=== PATIENT | male | born 1990 | race Two or more races ===

== ENCOUNTER 2016-12-17 21:30 | Emergency (ER) | payer OTHER ==
[2016-12-17] MEDS ORDERED: Amoxicillin/Clavulanate TAB* 875 MG PO ONE (22:31)
[2016-12-17] MEDS ORDERED: oxyCODONE/Acetamin 5/325 MG* TAB PO ONE (22:31)
--- NOTE | 2016-12-17 22:38 | ED ---
Throat Pain/Nasal Congestion - HPI Summary HPI Summary: 26M presents with right sided jaw pain for 4 days. He says he has had this pain in the past when he had an infection in the area. He initially broke his jaw two years and has a plate placed in his lower right jaw. He denies any fever , difficulty swallowing, chest pain, or SOB. He also admits to dental pain. He is seeing the surgeon a week. He has been taking ibuprofen for pain without relief. - History of Current Complaint Chief Complaint: EDGeneral Time Seen by Provider: 12/17/16 21:59 - Allergies/Home Medications Allergies/Adverse Reactions: Allergies Allergy/AdvReac Type Severity Reaction Status Date / Time No Known Allergies Allergy Verified 07/10/15 15:36 PMH/Surg Hx/FS Hx/Imm Hx Endocrine/Hematology History: Denies: Hx Diabetes, Hx Thyroid Disease Cardiovascular History: Denies: Hx Hypertension Respiratory History: Denies: Hx Asthma, Hx Chronic Obstructive Pulmonary Disease (COPD) GI History: Denies: Hx Ulcer Infectious Disease History: Denies: Hx Clostridium Difficile, Hx Hepatitis, Hx Human Immunodeficiency Virus (HIV), Hx of Known/Suspected MRSA, Hx Shingles, Hx Tuberculosis, Hx Known/ Suspected VRE, Hx Known/Suspected VRSA, History Other Infectious Disease, Traveled Outside the [place] in Last 30 Days - Family History Known Family History: Negative: Hypertension - Social History Alcohol Use: Rare Substance Use Type: Reports: None Smoking Status (MU): Heavy Every Day Tobacco Smoker Review of Systems Negative: Fever Positive: Dental Pain, Other - jaw pain Negative: Chest Pain Negative: Shortness Of Breath All Other Systems Reviewed And Are Negative: Yes Physical Exam Triage Information Reviewed: Yes Vital Signs On Initial Exam: Initial Vitals Temp Pulse Resp BP Pulse Ox 98.6 F 68 20 147/87 100 12/17/16 21:37 12/17/16 21:37 12/17/16 21:37 12/17/16 21:37 12/17/16 21:37 Vital Signs Reviewed: Yes Appearance: Positive: Well-Appearing Skin: Positive: Warm, Dry Head/Face: Positive: Normal Head/Face Inspection Eyes: Positive: Normal, EOMI, TEJAL, Conjunctiva Clear ENT: Positive: Normal ENT inspection, Pharynx normal, TMs normal Dental: Positive: Other - tender along plate felt in back of right lower teeth near widsom tooth, no abscess felt, no facial swelling Neck: Positive: Supple, Nontender, No Lymphadenopathy Respiratory/Lung Sounds: Positive: Clear to Auscultation, Breath Sounds Present Cardiovascular: Positive: Normal, RRR - Esdras Coma Scale Coma Scale Total: 15 Diagnostics - Vital Signs Vital Signs Temp Pulse Resp BP Pulse Ox 12/17/16 22:04 98.6 F 65 20 145/84 100 12/17/16 21:37 98.6 F 68 20 147/87 100 - Laboratory Lab Statement: Any lab studies that have been ordered have been reviewed, and results considered in the medical decision making process. EENT Course/Dx - Course Course Of Treatment: 26M presents with jaw pain for 4 days. has plate in area and says pain like this when was infected in past. follow up with surgeon in a week. denies any fever, difficulty swallowing. no edema noted on exam or abscess felt. like treat with augmentin and pain medication. patient understands and agrees with plan - Differential Diagnoses Differential Diagnoses: Dental Abscess, Dental Caries, Fractured Tooth - Diagnoses Provider Diagnoses: Jaw pain Discharge - Discharge Plan Condition: Good Disposition: HOME Prescriptions: Amoxicillin/Clavulanate TAB* [Augmentin TAB 875*] 875 mg PO BID #19 tab oxyCODONE/Acetamin 5/325 MG* [Percocet 5/325 TAB*] 1 tab PO Q6H PRN #12 tab MDD 4 PRN Reason: Pain Referrals: [facility] [place] [facility] REFERRAL [Outside] Additional Instructions: Take augmentin twice a day for 10 days, first dose given in ED Use ibuprofen every 6 hours and narcotic for break through pain at night Avoid hard, crunchy food until seen by surgery Follow up with surgery as scheduled Return to ED if develop fever, shortness of breath, chest pain, swelling, or any new or worsening symptoms Establish care with primary care physician
[2016-12-17 23:04] VITALS: BP 136/82
== END 2016-12-17 23:03 | disposition home or self-care (01) ==
LOC: ED 21:30
DX: R68.84 Jaw pain (principal); K08.89 Other specified disorders of teeth and supporting structures; F17.210 Nicotine dependence, cigarettes, uncomplicated
CPT/HCPCS: 99282; A9270-GY

== ENCOUNTER 2017-02-06 01:48 | Emergency (ER) | payer SELFPAY ==
[2017-02-06 02:17] LABS: Hematocrit 47 % (42-52); Mean Corpuscular HGB Conc 34 g/dl (31-36); Mean Corpuscular Hemoglobin 28 pg (27-31); Mean Corpuscular Volume 84 fL (80-94); Mean Platelet Volume 8 um3 (7.4-10.4); Red Blood Count 5.63 10^6/ul (4.0-5.4); Red Cell Distribution Width 12 % (10.5-15); White Blood Count 11.6 10^3/ul (3.5-10.8)
[2017-02-06 02:19] LABS: Add Diff/Slide Review? Slide Review Added; Comments Flag Yes
[2017-02-06 02:51] LABS: ALT 20 U/L (7-52); AST 14 U/L (13-39); Albumin 4.6 g/dL (3.2-5.2); Alkaline Phosphatase 52 U/L (34-104); Anion Gap 4 mmol/L (2-11); BUN/Creatinine Ratio 11.1 (8-20); Blood Urea Nitrogen 11 mg/dL (6-24); CO2 Carbon Dioxide 33 mmol/L (22-32); Calcium 9.4 mg/dL (8.6-10.3); Chloride 98 mmol/L (101-111); EGFR African American 119.4 (>60); EGFR Non-African American 92.9 (>60); Globulin 2.6 g/dL (2-4); Glucose 138 mg/dL (70-100); Potassium 3.9 mmol/L (3.5-5.0); Sodium 135 mmol/L (133-145); Total Protein 7.2 g/dL (6.4-8.9)
[2017-02-06 02:53] LABS: Alcohol < 10 mg/dL (<10)
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
[2017-02-06 06:12] VITALS: BP 116/68
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
== END 2017-02-06 06:12 | disposition home or self-care (01) ==
LOC: ED 01:48
DX: S06.0X9A Concussion with loss of consciousness of unspecified duration, initial encounter (principal); T14.8 Other injury of unspecified body region; R51 Headache; F17.210 Nicotine dependence, cigarettes, uncomplicated; V87.8XXA Person injured in other specified noncollision transport accidents involving motor vehicle (traffic), initial encounter; Y93.89 Activity, other specified; Y92.89 Other specified places as the place of occurrence of the external cause
CPT/HCPCS: 36415; 70450; 72125; 80053; 80320; 83605; 85025; 99284; G0480

== ENCOUNTER 2017-08-23 03:44 | Emergency (ER) | payer SELFPAY ==
[2017-08-23] MEDS ORDERED: Ketorolac INJ* 60 MG/2 ML VIAL IM ONE (05:07)
[2017-08-23] MEDS ORDERED: oxyCODONE/Acetamin 5/325 MG* TAB PO ONE (05:07)
[2017-08-23 05:48] VITALS: BP 119/77
--- NOTE | 2017-08-23 05:48 | ED ---
Brian Camacho Tecjoon, scribed for Gabriel Nelson MD on 08/23/17 at 0516 . Throat Pain/Nasal Congestion - HPI Summary HPI Summary: This patient is a 26 year old male presenting to [facility] with a chief complaint of jaw pain since couple days ago. Patient states that it is hard to swallow because his jaw is so swollen. The pain is rated 6/10 in severity. Symptoms aggravated by nothing. Symptoms alleviated by nothing. - History of Current Complaint Chief Complaint: EDFacialInjury Time Seen by Provider: 08/23/17 04:49 Hx Obtained From: Patient Onset/Duration: Lasting Days, Still Present Severity: Moderate - Allergies/Home Medications Allergies/Adverse Reactions: Allergies Allergy/AdvReac Type Severity Reaction Status Date / Time No Known Allergies Allergy Verified 02/06/17 01:56 PMH/Surg Hx/FS Hx/Imm Hx Previously Healthy: Yes Endocrine/Hematology History: Denies: Hx Diabetes, Hx Thyroid Disease Cardiovascular History: Denies: Hx Hypertension Respiratory History: Denies: Hx Asthma, Hx Chronic Obstructive Pulmonary Disease (COPD) GI History: Denies: Hx Ulcer Opthamlomology History: 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 EENT History: Denies: Hx Deafness Infectious Disease History: No Infectious Disease History: Denies: Hx Clostridium Difficile, Hx Hepatitis, Hx Human Immunodeficiency Virus (HIV), Hx of Known/Suspected MRSA, Hx Shingles, Hx Tuberculosis, Hx Known/ Suspected VRE, Hx Known/Suspected VRSA, History Other Infectious Disease, Traveled Outside the [place] in Last 30 Days - Family History Known Family History: Negative: Hypertension - Social History Lives: Alone Alcohol Use: Rare Substance Use Type: Reports: Marijuana Smoking Status (MU): Heavy Every Day Tobacco Smoker Review of Systems Negative: Fever Positive: Other - jaw pain All Other Systems Reviewed And Are Negative: Yes Physical Exam - Summary Physical Exam Summary: VITAL SIGNS: Reviewed. GENERAL: Patient is a well-developed and nourished (MALE OR FEMALE) who is lying comfortable in the stretcher. Patient is not in any acute respiratory distress. HEAD AND FACE: No signs of trauma. No ecchymosis, hematomas or skull depressions. No sinus tenderness. EYES: PERRLA, EOMI x 2, No injected conjunctiva, no nystagmus. EARS: Hearing grossly intact. Ear canals and tympanic membranes are within normal limits. MOUTH: Oropharynx within normal limits. NECK: Supple, trachea is midline, no adenopathy, no JVD, no carotid bruit, no c- spine tenderness, neck with full ROM. CHEST: Symmetric, no tenderness at palpation LUNGS: Clear to auscultation bilaterally. No wheezing or crackles. CVS: Regular rate and rhythm, S1 and S2 present, no murmurs or gallops appreciated. ABDOMEN: Soft, non-tender. No signs of distention. No rebound no guarding, and no masses palpated. Bowel sounds are normal. EXTREMITIES: FROM in all major joints, no edema, no cyanosis or clubbing. NEURO: Alert and oriented x 3. No acute neurological deficits. Speech is normal and follows commands. SKIN: Dry and warm Triage Information Reviewed: Yes Vital Signs On Initial Exam: Initial Vitals Temp Pulse Resp BP Pulse Ox 98.9 F 84 16 127/70 99 08/23/17 03:48 08/23/17 03:48 08/23/17 03:48 08/23/17 03:48 08/23/17 03:48 Vital Signs Reviewed: Yes Diagnostics - Vital Signs Vital Signs Temp Pulse Resp BP Pulse Ox 08/23/17 03:48 98.9 F 84 16 127/70 99 - Laboratory Lab Statement: Any lab studies that have been ordered have been reviewed, and results considered in the medical decision making process. EENT Course/Dx - Course Course Of Treatment: This patient is a 26 year old male presenting to [facility] with a chief complaint of jaw pain since couple days ago. Patient states that it is hard to swallow because his jaw is so swollen. In the ED course the patient was given Toradol, oxycodone. Patient will be discharged with jaw pain and prescription for motrin and follow up with PCP in 3 days. The patient is agreeable with this plan. - Diagnoses Provider Diagnoses: Jaw pain Discharge - Discharge Plan Condition: Stable Disposition: HOME Prescriptions: Ibuprofen TAB* [Motrin TAB* 800 MG] 800 mg PO Q6H PRN #30 tab PRN Reason: Pain Patient Education Materials: Atypical Facial Pain (ED) Referrals: No Primary Care Phys,NOPCP [Primary Care Provider] - [facility] REFERRAL [Outside] - 3 Days Additional Instructions: Patient will be discharged with jaw pain and prescription for motrin and follow up with PCP in 3 days. The patient is agreeable with this plan. Return to ED for any new or worsening symptoms. The documentation as recorded by the Brian greene Tecjoon accurately reflects the service I personally performed and the decisions made by , Gabriel Nelson MD.
== END 2017-08-23 05:49 | disposition home or self-care (01) ==
LOC: ED 03:44
DX: R68.84 Jaw pain (principal)
CPT/HCPCS: 96372; 99282; A9270-GY; J1885

== ENCOUNTER 2017-11-29 03:56 | Emergency (ER) | payer SELFPAY ==
[2017-11-29] MEDS ORDERED: Clindamycin 600 MG IVPREMIX(* 600 MG/50 ML SDV IV ONE (04:38)
[2017-11-29] MEDS ORDERED: Ketorolac INJ* 30 MG/ML 1 ML VIAL IV PUSH ONE (04:41)
[2017-11-29 05:00] LABS: ABS Basophils 0.1 10^3/ul (0-0.2); ABS Eosinophils 0.2 10^3/ul (0-0.6); ABS Lymphocytes 2.5 10^3/ul (1.0-4.8); ABS Monocytes 1.3 10^3/ul (0-0.8); ABS Neutrophils 10.2 10^3/ul (1.5-7.7); ABS Nucleated RBC 0 10^3/ul; Eosinophil % 1.2 % (0-6); Hematocrit 43 % (42-52); Hemoglobin 14.7 g/dl (14.0-18.0); Lymphocyte % 17.3 % (25-47); Mean Corpuscular HGB Conc 35 g/dl (31-36); Mean Corpuscular Hemoglobin 28 pg (27-31); Mean Corpuscular Volume 81 fL (80-94); Nucleated Red Blood Cells % 0.1; Platelet Count 344 10^3/ul (150-450); Red Blood Count 5.29 10^6/ul (4.0-5.4); Red Cell Distribution Width 14 % (10.5-15); White Blood Count 14.2 10^3/ul (3.5-10.8)
[2017-11-29 05:44] VITALS: BP 121/67
[2017-11-29 06:08] LABS: EGFR Non-African American 112.9 (>60)
--- NOTE | 2017-12-03 01:11 | ED ---
Emerita Camacho Julia, scribed for Joshua Bernard MD on 11/29/17 at 0441 . Neck Pain - HPI Summary HPI Summary: This patient is a 27 year old M presenting to [facility] with a chief complaint of a swelling in the R mandibular area noticed three days ago, that has worsened with spreading of swelling to the submandibular space and pain. The patient rates the pain 10/10 in severity. Patient denies dental pain, but reports swollen gums. He has a h/o a plate in R mandible placed after breaking jaw. There has been no fever. He endorses trismus, difficult to swallow or open his jaw. - History of Current Complaint Chief Complaint: EDRashSkinAbscess Stated Complaint: ABSCESS Time Seen by Provider: 11/29/17 04:29 Hx Obtained From: Patient Onset/Duration Of Injury/Symptoms: Days Mechanism Of Injury: No Known Trauma Timing: Lasting Days Onset/Duration: Gradual Onset Pain Intensity: 10 Pain Scale Used: 0-10 Numeric Location: Discrete At: - R parotid Aggravating Factors: Nothing Alleviating Factors: Nothing Associated Signs & Symptoms: Positive: Swelling - Allergies/Home Medications Allergies/Adverse Reactions: Allergies Allergy/AdvReac Type Severity Reaction Status Date / Time No Known Allergies Allergy Verified 11/29/17 04:00 Home Medications: Home Medications NK [No Home Medications Reported] 11/29/17 [History Confirmed 11/29/17] PMH/Surg Hx/FS Hx/Imm Hx Endocrine/Hematology History: Denies: Hx Diabetes, Hx Thyroid Disease Cardiovascular History: Denies: Hx Hypertension Respiratory History: Denies: Hx Asthma, Hx Chronic Obstructive Pulmonary Disease (COPD) GI History: Denies: Hx Ulcer Sensory History: 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 Denies: Hx Deafness Opthamlomology History: 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 Infectious Disease History: No Infectious Disease History: Denies: Hx Clostridium Difficile, Hx Hepatitis, Hx Human Immunodeficiency Virus (HIV), Hx of Known/Suspected MRSA, Hx Shingles, Hx Tuberculosis, Hx Known/ Suspected VRE, Hx Known/Suspected VRSA, History Other Infectious Disease, Traveled Outside the [place] in Last 30 Days - Family History Known Family History: Negative: Hypertension - Social History Alcohol Use: Rare Substance Use Type: Reports: Heroin, Marijuana Smoking Status (MU): Heavy Every Day Tobacco Smoker Review of Systems Constitutional: Negative Positive: Other - R parotid pain and edema. Negative: Dental Pain All Other Systems Reviewed And Are Negative: Yes Physical Exam - Summary Physical Exam Summary: Appearance: non-toxic appearing, Well-nourished, lying in bed comfortably Skin: Warm, dry, no obvious rash Eyes: sclera anicteric, no conjunctiva pallor ENT: mucous membranes moist, pharynx appears normal Neck:woody edema and induration of right submandibular space with associated swelling over the right mandible, no spread to the left side, no dysphonia, there is some trismus , no fluctuate Respiratory: Clear to auscultation, no signs of respiratory distress Cardiovascular: Normal S1, S2. No murmurs. Normal distal pulses in tibial and radial bilaterally. Abdomen: Soft, nontender, normal active bowel sounds present Musculoskeletal: Normal, Strength/ROM Intact Neurological: A&Ox3, awake and alert, mentation is normal, speech is fluent and appropriate Psychiatric: affect is normal, does not appear anxious or depressed Triage Information Reviewed: Yes Vital Signs On Initial Exam: Initial Vitals Temp Pulse Resp BP Pulse Ox 99.2 F 110 16 134/90 96 11/29/17 03:58 11/29/17 03:58 11/29/17 03:58 11/29/17 03:58 11/29/17 03:58 Vital Signs Reviewed: Yes Diagnostics - Vital Signs Vital Signs Temp Pulse Resp BP Pulse Ox 11/29/17 04:31 101 97 11/29/17 04:30 101 136/90 98 11/29/17 03:58 99.2 F 110 16 134/90 96 - Laboratory Lab Results: Lab Results 11/29/17 Range/Units 04:47 WBC 14.2 H (3.5-10.8) 10^3/ul RBC 5.29 (4.0-5.4) 10^6/ul Hgb 14.7 (14.0-18.0) g/dl Hct 43 (42-52) % MCV 81 (80-94) fL MCH 28 (27-31) pg MCHC 35 (31-36) g/dl RDW 14 (10.5-15) % Plt Count 344 (150-450) 10^3/ul MPV 7.0 L (7.4-10.4) um3 Neut % (Auto) 72.0 (38-83) % Lymph % (Auto) 17.3 L (25-47) % [place] % (Auto) 8.8 H (0-7) % Eos % (Auto) 1.2 (0-6) % Baso % (Auto) 0.7 (0-2) % Absolute Neuts (auto) 10.2 H (1.5-7.7) 10^3/ul Absolute Lymphs (auto) 2.5 (1.0-4.8) 10^3/ul Absolute Monos (auto) 1.3 H (0-0.8) 10^3/ul Absolute Eos (auto) 0.2 (0-0.6) 10^3/ul Absolute Basos (auto) 0.1 (0-0.2) 10^3/ul Absolute Nucleated RBC 0 10^3/ul Nucleated RBC % 0.1 Result Diagrams: 11/29/17 04:47 Lab Statement: Any lab studies that have been ordered have been reviewed, and results considered in the medical decision making process. Neck Course/Dx - Course Assessment/Plan: 27 y/o IVDA with acute swelling of mandible and submandibular space. A diagnosis of Herman's angina was entertained but he only has unilateral swelling and no dysphonia. He was given an IV dose of clindamycin here and will be continued on that orally. Liquid diet for now until swelling improves. Will need f/u with dentist. - Diagnoses Differential Dx/HQI/PQRI: Positive: Other - Ludwigs angina Provider Diagnoses: Dental abscess Discharge - Sign-Out/Discharge Documenting (check all that apply): Discharge/Admit/Transfer - Discharge Plan Condition: Good Disposition: HOME Prescriptions: Clindamycin Cap(NF) [Clindamycin Cap 300 mg Cap(NF)] 300 mg PO TID #30 cap Naproxen [Naproxen 500 mg tab] 500 mg PO BID #20 tablet Patient Education Materials: Dental Abscess (ED) Referrals: No Primary Care Phys,NOPCP [Primary Care Provider] - Additional Instructions: You will need followup care with a dentist of your choice. The swelling and pain should start coming down over the next couple of days with the antibiotics. If not or if it is worsening, come back here to the ED. The documentation as recorded by the Emerita greene Julia accurately reflects the service I personally performed and the decisions made by me, Joshua Bernard MD.
== END 2017-11-29 05:44 | disposition home or self-care (01) ==
LOC: ED 03:56
DX: K04.7 Periapical abscess without sinus (principal); H54.8 Legal blindness, as defined in USA; F17.200 Nicotine dependence, unspecified, uncomplicated
CPT/HCPCS: 36415; 80048; 85025; 96365; 96375; 99283; J1885

== ENCOUNTER 2019-04-28 20:05 | Emergency (ER) | payer MEDICAID ==
--- NOTE | 2019-04-28 20:24 | ED ---
Upper Extremity Pain - HPI Summary HPI Summary: 28 year old M presenting to [facility] accompanied by female disease case manager complains of 1 protrusion on his right axillary and 1 protrusion on his left axillary since 3 days ago. Denies fever, nausea, drainage. States he has never had symptoms like this before. States he switched to using gel deodorant recently. States the one on his left has decreased in size since 3 days ago. The patient rates the pain 6/10 in severity. Symptoms aggravated by nothing. Symptoms alleviated by Tylenol 500 mg and heat. Denies pertinent PMHx. - History of Current Complaint Chief Complaint: EDExtremityUpper Stated Complaint: BOILS UNDER BOTH ARMS PER PT Time Seen by Provider: 04/28/19 20:09 Hx Obtained From: Patient Onset/Duration: Started Days Ago - 3, Still Present Timing: Constant, Lasting Days - 3 Severity Currently: Moderate - 6/10 Pain Location: Other: - bilateral axillary Aggravating Factor(s): Nothing Alleviating Factor(s): Nothing Associated Signs & Symptoms: Positive: Negative - fever, nausea, drainage - Allergies/Home Medications Allergies/Adverse Reactions: Allergies Allergy/AdvReac Type Severity Reaction Status Date / Time No Known Allergies Allergy Verified 04/28/19 20:11 PMH/Surg Hx/FS Hx/Imm Hx Endocrine/Hematology History: Denies: Hx Diabetes, Hx Thyroid Disease Cardiovascular History: Denies: Hx Hypertension Respiratory History: Denies: Hx Asthma, Hx Chronic Obstructive Pulmonary Disease (COPD) GI History: Denies: Hx Ulcer Sensory History: 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 Denies: Hx Deafness Opthamlomology History: 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 - Surgical History Surgery Procedure, Year, and Place: jaw Infectious Disease History: No Infectious Disease History: Denies: Hx Clostridium Difficile, Hx Hepatitis, Hx Human Immunodeficiency Virus (HIV), Hx of Known/Suspected MRSA, Hx Shingles, Hx Tuberculosis, Hx Known/ Suspected VRE, Hx Known/Suspected VRSA, History Other Infectious Disease, Traveled Outside the [place] in Last 30 Days - Family History Known Family History: Negative: Hypertension - Social History Alcohol Use: None Hx Substance Use: Yes Substance Use Type: Reports: Heroin, Marijuana Hx Tobacco Use: Yes Smoking Status (MU): Heavy Every Day Tobacco Smoker Review of Systems - ROS Summary Review of Systems Summary: Home Medications Medication Instructions Recorded Confirmed Type Amoxicillin/Clavulanate TAB* 875 mg PO BID #20 tab 04/28/19 Rx [Augmentin TAB 875*] Negative: Fever Negative: Nausea Skin: Negative - drainage Positive: Other - protusions on bilateral axillary All Other Systems Reviewed And Are Negative: Yes Physical Exam - Summary Physical Exam Summary: General: Thin MALE. No acute distress. HEENT: Normocephalic, Atraumatic. Eyes: Conjuctiva normal, PERRL. Ears: TMs within normal limits. Nares: (-) discharge, (-) erythema. Oropharynx: Clear, mucous membranes moist, (-) exudates. Neck: Soft, FROM, (-) lymphadenopathy, (-) thyromegaly, (-) JVD. Cardiovascular: Normal sinus rhythm, (-) murmur. Lungs: Clear to auscultation bilaterally (-) wheezes, (-) rales, (-) rhonchi. Abdomen: Soft, non-tender, non-distended, (-) organomegaly, normal bowel sounds. Back: (-) CVA tenderness Extremities: No edema. Skin: Warm, dry, (-) rash. He has a 3 mm erythematous protusion on right axilla which is warm and tender with no obvious fluctuance and no drainage and an 8 mm erythematous protusion on left axilla which is warm and tender with no obvious fluctuance and no drainage Neuro: Alert and oriented x3, no focal deficits. Psychiatric: Flat affect. Triage Information Reviewed: Yes Vital Signs On Initial Exam: Initial Vitals Temp Pulse Resp BP Pulse Ox 99 F 85 16 134/87 99 04/28/19 20:07 04/28/19 20:07 04/28/19 20:07 04/28/19 20:07 04/28/19 20:07 Vital Signs Reviewed: Yes Procedures - Sedation Patient Received Moderate/Deep Sedation with Procedure: No Diagnostics - Vital Signs Vital Signs Temp Pulse Resp BP Pulse Ox 04/28/19 20:07 99 F 85 16 134/87 99 - Laboratory Lab Statement: Any lab studies that have been ordered have been reviewed, and results considered in the medical decision making process. Course/Dx - Course Course Of Treatment: 28 year old M complains of 1 abscess on his right axillary and 1 abscess on his left axillary since 3 days ago after he switched to using gel deodorant. Upon exam, the patient is a thin male who has a 3 mm erythematous protusion on right axilla which is warm and tender with no obvious fluctuance and no drainage and an 8 mm erythematous protusion on left axilla which is warm and tender with no obvious fluctuance and no drainage. His affect is flat. In the ED course, the patient was given Augmentin 875 mg PO. Patient will be discharged home with prescription for Augmentin 875 mg PO BID and follow up from [facility] in 3 days. He was advised to take ibuprofen 3 times a day with food and to use heat (20 minutes on, 20 minutes off ). Patient was instructed to return to Emergency Department for new or worsening symptoms. Patient understands and is agreeable to this plan. - Diagnoses Provider Diagnoses: Axillary abscess Discharge ED - Sign-Out/Discharge Documenting (check all that apply): Patient Departure - Discharge - Discharge Plan Condition: Stable Disposition: HOME Prescriptions: Amoxicillin/Clavulanate TAB* [Augmentin TAB 875*] 875 mg PO BID #20 tab Patient Education Materials: Abscess (ED) Forms: *Work Release Referrals: [facility] [Outside] - 2 Days Additional Instructions: Take ibuprofen 3 times a day with food. Use heat (20 minutes on, 20 minutes off). Please follow up with [facility] within 3 days. Please return to Emergency Department for any new or worsening symptoms. - Billing Disposition and Condition Condition: STABLE Disposition: Home - Attestation Statements Document Initiated by Gama: Yes Documenting Scribe: Katherine Kennedy Provider For Whom Gama is Documenting (Include Credential): Bailee Gaxiola MD Scribe Attestation: I, Katherine Kennedy, scribed for Bailee Gaxiola MD on 04/28/19 at 2320. Scribe Documentation Reviewed: Yes Provider Attestation: The documentation as recorded by the Katherine greene accurately reflects the service I personally performed and the decisions made by me, Bailee Gaxiola MD Status of Scribmillie Document: Viewed
[2019-04-28] MEDS ORDERED: Amoxicillin/Clavulanate TAB* 875 MG PO ONE (20:40)
[2019-04-28 20:55] VITALS: BP 127/76
== END 2019-04-28 20:52 | disposition home or self-care (01) ==
LOC: ED 20:05
DX: L02.411 Cutaneous abscess of right axilla (principal); L02.412 Cutaneous abscess of left axilla; F17.200 Nicotine dependence, unspecified, uncomplicated
CPT/HCPCS: 99282; A9270-GY

== ENCOUNTER 2023-02-25 19:12 | Inpatient (IN) ==
[2023-02-25] MEDS ORDERED: Lactated Ringers 1000 ml BAG 1,000 ML IV ONE ×4 (19:41→20:37)
[2023-02-25 19:57] LABS: Hematocrit 52.7 % (38-53); Hemoglobin 16.8 g/dL (13.2-16.3); Mean Corpuscular Hemoglobin 27.8 pg (27-33); Mean Corpuscular Hgb Conc 31.9 g/dL (31-36); Mean Corpuscular Volume 87.1 fL (80-97); Mean Platelet Volume 8.5 fL (7.5-11.2); Platelet Count 282 10^3/uL (150-450); Red Blood Count 6.05 10^6/uL (4.06-5.63); Red Cell Distribution Width 13.8 % (12-17); White Blood Count 32.3 10^3/uL (3.6-10.2)
[2023-02-25 20:15] LABS: Albumin 4.7 g/dL (3.2-5.2); Calcium 7.2 mg/dL (8.6-10.3); Chloride 100 mmol/L (101-111); Sodium 135 mmol/L (135-145)
[2023-02-25] MEDS ORDERED: Iodixanol (CONTRAST) 320 MG/ML 100 ML SDV IV ONE (20:17)
[2023-02-25 20:21] LABS: Alkaline Phosphatase 77 U/L (35-149); Blood Urea Nitrogen 26 mg/dL (6-24); Creatinine, Serum 3.08 mg/dL (0.67-1.17); Glucose 106 mg/dL (70-100); eGFR CKD-EPI 26.9 (>60)
[2023-02-25 20:24] LABS: ABS Lymphocytes 1.7 10^3/uL (1.0-4.8); ABS Monocytes 1.1 10^3/uL (0.0-1.1); ABS Neutrophils 29.5 10^3/uL (1.5-7.6); ABS Nucleated RBC 0.13 10^3/ul; Eosinophil % 0.1 %; Lymphocyte % 5.2 %; Nucleated Red Blood Cells % 0.4 /100 WBC (0.0-0.4)
[2023-02-25 20:25] LABS: RBC Morphology Normal (Normal)
[2023-02-25 20:31] LABS: PCO2 Arterial 30 mmHg (35-45); PO2 Arterial 148 mmHg (80-100)
[2023-02-25 20:34] LABS: Anion Gap 23 mmol/L (2-16); CO2 Carbon Dioxide 12 mmol/L (22-32)
[2023-02-25 20:42] LABS: Alcohol, S < 13 mg/dL (<13)
[2023-02-25 20:58] LABS: INR 1.91 (0.83-1.13)
[2023-02-25] MEDS ORDERED: Calcium Gluconate 2 GM in NS 0.9% 100 ml BAG 100 ML IVPB ONE ×2 (21:25→22:51)
[2023-02-25] MEDS ORDERED: Dextrose 50% Syringe 50 ml 25 GM/50 ML SYRINGE IV PUSH ONE ×2 (21:25)
[2023-02-25] MEDS ORDERED: Albuterol 2.5mg/3 ml (0.083%) NEB.SOLN INH ONE (21:29)
[2023-02-25] MEDS ORDERED: SODIUM ZIRCONIUM CYCLOSILICATE 10 GM PACKET PO ONE (21:33)
[2023-02-25] MEDS: Norepinephrine 16MCG/ML BAGD5W 4,000 MCG/250 ML BAG IV SCH (21:44)
[2023-02-25] MEDS ORDERED: NS 0.9% 1000 ml BAG 100 ML IV PRN (22:07)
[2023-02-25] MEDS ORDERED: NS 0.9% 1000 ml BAG 200 ML IV PRN (22:07)
[2023-02-25] MEDS ORDERED: Succinylcholine 200 mg VIAL 20 mg/ml 10 ml VIAL (200 mg) ONE (22:12)
[2023-02-25] MEDS ORDERED: Rocuronium 50 mg VIAL 10 mg/ml 5 ml VIAL (50 mg) ONE (22:12)
[2023-02-25 22:25] LABS: High Sensitivity Troponin 1 Hr 2763 pg/mL (<20)
[2023-02-25] MEDS ORDERED: Propofol 10 mg/ml 100 ML BTL 1,000 MG/100 ML BTL ONE (22:28)
[2023-02-25] MEDS ORDERED: Rocuronium 50 mg VIAL 10 mg/ml 5 ml VIAL (50 mg) IV ONE (22:30)
[2023-02-25] MEDS ORDERED: Etomidate 20 mg/10 ml 2 MG/ML 10 ml VIAL IV ONE (22:30)
[2023-02-25 22:45] LABS: Acetaminophen < 15 mcg/mL; Salicylate < 2.50 mg/dL (<30)
[2023-02-25] MEDS ORDERED: Sodium Bicarbonate 8.4% SYR 50 ml SYRINGE IV ONE (22:51)
[2023-02-25] MEDS ORDERED: Amiodarone IV 150 mg/3 ml VIAL ONE (22:57)
[2023-02-25] MEDS ORDERED: Dextrose 50% Syringe 50 ml 25 GM/50 ML SYRINGE ONE (22:57)
[2023-02-25] MEDS ORDERED: Sodium Bicarbonate 8.4% SYR 50 ml SYRINGE ONE (22:57)
[2023-02-25] MEDS ORDERED: Calcium CHLORIDE 10% SYRINGE 1 GM/10 ML ONE (22:57)
[2023-02-25] MEDS ORDERED: EPINEPHrine SYR 0.1MG/ML 10 ml SYRINGE IV ONE (22:57)
[2023-02-25] MEDS ORDERED: NS 0.9% IV ONE (23:00)
[2023-02-25] MEDS ORDERED: CALCIUM GLUCONATE IV ONE (23:00)
[2023-02-25 23:02] LABS: Potassium Redraw 7.9 mmol/L (3.5-5.0)
[2023-02-25] MEDS ORDERED: Sodium Bicarb 8.4% Vial 50 ML 150 MEQ in D5W 1000 ml BAG 850 ML IV ONE (23:05)
[2023-02-26 00:23] LABS: Urine Appearance Cloudy; Urine Bilirubin Negative (Negative); Urine Blood 3+ (Negative); Urine Color Amber; Urine Glucose 2+(150 mg/dL) (Negative); Urine Ketones Negative (Negative); Urine Nitrite Negative (Negative); Urine Protein 2+(100 mg/dL) (Negative); Urine Specific Gravity 1.021 (1.002-1.030); Urine Urobilinogen Negative (Negative)
[2023-02-26] MEDS: Chlorhexidine MOUTHWASH 0.12% 15 ML UDC TOPICAL SCH ×7 (00:28→21:38)
[2023-02-26] MEDS: Norepinephrine 16MCG/ML BAGD5W 4,000 MCG/250 ML BAG IV SCH ×8 (00:28→22:21)
[2023-02-26 00:29] LABS: Urine Amorphous Crystals Present (Absent); Urine Bacteria Absent (Absent); Urine Red Blood Cell 3+(>10/hpf) (Absent); Urine Sperm Present (Absent); Urine Squamous Epithelial Cell Present (Absent); Urine White Blood Cell 2+(11-20/hpf) (Absent); Urine Yeast Present (Absent)
[2023-02-26] MEDS: Heparin 1,000 UNIT/ML 10 ml (10,000 UNITS) CATHLAB/DIALYSIS DIALYSIS PRN ×8 (00:30→23:30)
[2023-02-26 01:01] LABS: Urine Benzodiazepine Screen Presumptive Positive (None Detect); Urine Buprenorphine Screen Presumptive Positive (None Detect); Urine Cannabinoids Screen None Detected (None Detect); Urine Fentanyl Screen Presumptive Positive (None Detect); Urine Hydrocodone Screen None Detected (None Detect); Urine Opiates Screen None Detected (None Detect)
[2023-02-26 02:29] LABS: Hepatitis B Surface Antigen Nonreactive (Nonreactive)
[2023-02-26 02:37] LABS: HIV 4th Generation Nonreactive (Nonreactive)
[2023-02-26 02:46] LABS: Hepatitis B Surface Ab Immune (Immune)
[2023-02-26 02:49] LABS: Venous Bicarbonate HCO3 20.6 mmol/L (24-28)
[2023-02-26] MEDS ORDERED: Propofol 10 mg/ml 100 ML BTL 1,000 MG/100 ML BTL ONE (03:28)
[2023-02-26 03:48] LABS: Hepatitis C Antibody Reactive (Negative)
[2023-02-26] MEDS ORDERED: Propofol 10 mg/ml 100 ML BTL 1,000 MG/100 ML BTL IV SCH ×2 (04:00→08:28)
[2023-02-26] MEDS: Heparin 5000 UNITS/ML 1 mL VIAL SUBCUT SCH ×2 (05:33→17:31)
[2023-02-26] MEDS: Pantoprazole VIAL 40 MG VIAL IV SCH (08:36)
[2023-02-26] MEDS ORDERED: Sulfur Hexaflouride MICROSPHR 25 MG VIAL ONE (08:40)
[2023-02-26 10:27] LABS: Venous Bicarbonate HCO3 18.3 mmol/L (24-28)
[2023-02-26 10:41] LABS: Hematocrit 55.9 % (38-53); Mean Corpuscular Hgb Conc 34.1 g/dL (31-36); Mean Corpuscular Volume 82.3 fL (80-97); Red Blood Count 6.79 10^6/uL (4.06-5.63); Red Cell Distribution Width 13.5 % (12-17); White Blood Count 31.1 10^3/uL (3.6-10.2)
[2023-02-26 10:51] LABS: Albumin 3.1 g/dL (3.2-5.2); Albumin/Globulin Ratio 1.5 (1-3); Alkaline Phosphatase 98 U/L (35-149); Blood Urea Nitrogen 17 mg/dL (6-24); CO2 Carbon Dioxide 26 mmol/L (22-32); Chloride 89 mmol/L (101-111); Creatinine, Serum 2.73 mg/dL (0.67-1.17); Globulin 2.1 g/dL (2-4); Glucose 172 mg/dL (70-100); Sodium 128 mmol/L (135-145); Total Protein 5.2 g/dL (6.4-8.9); eGFR CKD-EPI 31.1 (>60)
[2023-02-26 10:52] LABS: INR 2.12 (0.83-1.13)
[2023-02-26] MEDS ORDERED: DOBUTamine IV 500 MG in D5W 250 ml BAG 210 ML IV SCH (11:00)
[2023-02-26 11:08] LABS: Anion Gap 13 mmol/L (2-16); High Sens Troponin Baseline > 24000 pg/mL (<20)
[2023-02-26 11:18] LABS: RBC Morphology Normal (Normal)
[2023-02-26 11:19] LABS: Smudge Cells Present
[2023-02-26 11:24] LABS: Potassium, Whole Blood 5.5 mmol/L (3.4-4.5)
[2023-02-26] MEDS: DOBUTamine 2000 MCG/ML IVPREMX 500 MG/250 ML BAG IV SCH (11:25)
[2023-02-26] MEDS: Piperacillin/Tazobac 3.375 BAG 3.375 GM/100 ML BAG IV SCH ×2 (11:28→21:37)
[2023-02-26] MEDS ORDERED: fentaNYL 100 mcg/2 ml 50 MCG/ML VIAL ONE (11:29)
[2023-02-26 11:30] LABS: ABS Basophils 0.1 10^3/uL (0.0-0.1); ABS Lymphocytes 6.2 10^3/uL (1.0-4.8); ABS Monocytes 0.8 10^3/uL (0.0-1.1); ABS Nucleated RBC 0.17 10^3/ul; Eosinophil % 0.1 %; Nucleated Red Blood Cells % 0.6 /100 WBC (0.0-0.4); Platelet Count Platelets clumped. 10^3/uL (150-450)
[2023-02-26] MEDS: fentaNYL 100 mcg/2 ml 50 MCG/ML VIAL IV SLOW PU PRN ×2 (11:30→12:44)
[2023-02-26] MEDS ORDERED: fentaNYL 100 mcg/2 ml 50 MCG/ML VIAL IV SLOW PU PRN (11:31)
[2023-02-26 11:36] LABS: ALT 4987 U/L (7-52)
[2023-02-26] MEDS ORDERED: VASOPRESSIN IVPREMIX BTL 40 UNIT/100 ML BTL IV ONE (12:10)
[2023-02-26] MEDS ORDERED: VASOPRESSIN IVPREMIX BTL 40 UNIT/100 ML BTL IV SCH ×3 (12:15→17:32)
[2023-02-26 12:29] LABS: PCO2 Arterial 34 mmHg (35-45); PO2 Arterial 166 mmHg (80-100)
[2023-02-26 12:38] LABS: High Sensitivity Troponin 1 Hr > 24000 pg/mL (<20)
[2023-02-26] MEDS ORDERED: Bupivacaine 0.5% SDV PF 30ML VIAL ONE (12:45)
[2023-02-26] MEDS ORDERED: Rocuronium 50 mg VIAL 10 mg/ml 5 ml VIAL (50 mg) ONE (12:58)
[2023-02-26] MEDS ORDERED: Dexamethasone IV 4 MG/ML VIAL 1 ml VIAL ONE (12:58)
[2023-02-26] MEDS ORDERED: Midazolam 5 mg/5 ml VIAL 1 mg/ml 5 ml VIAL (5 mg) ONE ×2 (12:58→14:20)
[2023-02-26] MEDS ORDERED: fentaNYL 250 mcg/5 ml 50 MCG/ML 5 ml VIAL (250 MCG) ONE ×2 (12:59→14:21)
[2023-02-26] MEDS ORDERED: Ketamine HCL 50 mg/ml 10 ml VIAL (500 MG) ONE (12:59)
[2023-02-26] MEDS ORDERED: Phenylephrine 40 mcg/mL 10mL (400mcg) SYRINGE ONE (13:02)
[2023-02-26 13:27] LABS: PCO2 Arterial 34 mmHg (35-45); PO2 Arterial 419 mmHg (80-100)
[2023-02-26] MEDS ORDERED: NS 0.9% 1000 ml BAG 1,000 ML IV ONE ×2 (13:52→13:53)
[2023-02-26] MEDS ORDERED: Propofol 0 MG/0 ML BTL ONE (14:26)
[2023-02-26] MEDS ORDERED: Iodixanol 320 (CONTRAST) 100 ML SDV ONE (14:56)
[2023-02-26] MEDS ORDERED: Lidocaine 1% VIAL 10 MG/ML 30 ML VIAL ONE (14:56)
[2023-02-26] MEDS ORDERED: Heparin 1,000 UNIT/ML 10 ml (10,000 UNITS) CATHLAB/DIALYSIS ONE (14:56)
[2023-02-26] MEDS ORDERED: Heparin 2 UNITS/ML IVPREMIX 3,000 UNIT/1,500 ML BAG IV ONE (14:57)
[2023-02-26 15:00] LABS: PCO2 Arterial 21 mmHg (35-45); PO2 Arterial 392 mmHg (80-100)
[2023-02-26] MEDS ORDERED: Sodium Bicarb 8.4% Vial 50 ML 150 MEQ in D5W 1000 ml BAG 850 ML IV SCH (15:00)
[2023-02-26] MEDS ORDERED: Sodium Bicarbonate 8.4% VIAL 1 MEQ/ML 50 ml VIAL (50 meq) ONE ×2 (15:34→19:59)
[2023-02-26] MEDS ORDERED: nitroGLYCERIN DRIP 25,000 MCG/250 ML BTL ONE (15:57)
[2023-02-26] MEDS ORDERED: Norepinephrine 16MCG/ML BAGD5W 4,000 MCG/250 ML BAG IV ONE (16:27)
[2023-02-26 17:19] LABS: Creatine Kinase 125244 U/L (10-223)
[2023-02-26] MEDS: VASOPRESSIN IVPREMIX BTL 40 UNIT/100 ML BTL IV SCH (17:44)
[2023-02-26] MEDS ORDERED: fentaNYL INFUSION 50 mcg/mL VL 2,500 MCG/50 ML VIAL IV SCH (18:00)
[2023-02-26 18:06] LABS: Venous Bicarbonate HCO3 10.3 mmol/L (24-28)
[2023-02-26] MEDS ORDERED: Sodium Bicarbonate 8.4% SYR 50 ml SYRINGE IV ONE (18:11)
[2023-02-26 19:12] LABS: Mean Corpuscular Hemoglobin 28.1 pg (27-33); Mean Corpuscular Hgb Conc 33.4 g/dL (31-36); Mean Platelet Volume 8.5 fL (7.5-11.2); Platelet Count 112 10^3/uL (150-450); Red Blood Count 4.64 10^6/uL (4.06-5.63); Red Cell Distribution Width 13.8 % (12-17); White Blood Count 17.9 10^3/uL (3.6-10.2)
[2023-02-26 19:12] LABS: Venous Bicarbonate HCO3 10.2 mmol/L (24-28)
[2023-02-26 19:17] LABS: INR 3.52 (0.83-1.13)
[2023-02-26] MEDS ORDERED: Phytonadione IV (Adult) 5 MG in NS 0.9% 50 ML 50 ML IV ONE (19:33)
[2023-02-26 19:37] LABS: Albumin 1.9 g/dL (3.2-5.2); Albumin/Globulin Ratio 1.7 (1-3); Creatinine, Serum 3.11 mg/dL (0.67-1.17); Globulin 1.1 g/dL (2-4); Magnesium 1.9 mg/dL (1.9-2.7); Total Bilirubin 0.9 mg/dL (0.2-1.0); eGFR CKD-EPI 26.6 (>60)
[2023-02-26 19:39] LABS: Phosphorus 13.1 mg/dL (2.5-5.0)
[2023-02-26 19:41] LABS: Potassium 7.2 mmol/L (3.5-5.0)
[2023-02-26] MEDS ORDERED: Calcium Gluconate 3 GM in NS 0.9% 250 ml 250 ML IV ONE (19:42)
[2023-02-26 19:49] LABS: ABS Basophils 0.1 10^3/uL (0.0-0.1); ABS Eosinophils 0.2 10^3/uL (0.0-0.5); ABS Lymphocytes 3.4 10^3/uL (1.0-4.8); ABS Monocytes 0.5 10^3/uL (0.0-1.1); ABS Neutrophils 13.7 10^3/uL (1.5-7.6); Eosinophil % 1.2 %; Lymphocyte % 19.1 %; Nucleated Red Blood Cells % 0.5 /100 WBC (0.0-0.4)
[2023-02-26] MEDS ORDERED: MILRINONE IV ONE (19:56)
[2023-02-26] MEDS ORDERED: Sodium Bicarbonate 8.4% SYR 50 ml SYRINGE ONE ×2 (19:57→20:21)
[2023-02-26] MEDS ORDERED: Milrinone 200 MCG/ML PREMIXBAG 20,000 MCG/100 ML BAG IV SCH (20:00)
[2023-02-26] MEDS: Sodium Bicarbonate 8.4% VIAL 1 MEQ/ML 50 ml VIAL (50 meq) IV SCH ×2 (20:18→20:49)
[2023-02-26] MEDS ORDERED: EPINEPHrine SYR 0.1MG/ML 10 ml SYRINGE IV ONE (20:21)
[2023-02-26] MEDS ORDERED: Dextrose 50% Syringe 50 ml 25 GM/50 ML SYRINGE ONE (20:21)
[2023-02-26] MEDS ORDERED: Dextrose 50% Syringe 50 ml 25 GM/50 ML SYRINGE IV PUSH ONE (20:25)
[2023-02-26 21:52] LABS: Calcium 4.3 mg/dL (8.6-10.3)
[2023-02-26] MEDS ORDERED: Lactated Ringers 1000 ml BAG 1,000 ML IV ONE ×2 (22:06→22:54)
[2023-02-26] MEDS ORDERED: Rocuronium 50 mg VIAL 10 mg/ml 5 ml VIAL (50 mg) IV ONE (22:30)
[2023-02-26 22:44] LABS: PCO2 Arterial 39 mmHg (35-45); PO2 Arterial 271 mmHg (80-100)
[2023-02-27] MEDS: Norepinephrine 16MCG/ML BAGD5W 4,000 MCG/250 ML BAG IV SCH ×15 (00:01→23:51)
[2023-02-27] MEDS: Dexmedetomidine 1,000 MCG in NS 0.9% 250 ml 240 ML IV SCH ×3 (00:27→22:10)
[2023-02-27] MEDS: Heparin 1,000 UNIT/ML 10 ml (10,000 UNITS) CATHLAB/DIALYSIS DIALYSIS PRN ×23 (00:30→23:45)
[2023-02-27] MEDS: DOBUTamine 2000 MCG/ML IVPREMX 500 MG/250 ML BAG IV SCH ×3 (00:42→17:08)
[2023-02-27] MEDS: Phenylephrine DRIP 0.2 MG/ML in NS 0.9% 250 ML (PHA mix) IV SCH ×6 (00:47→23:59)
[2023-02-27] MEDS ORDERED: PHENYLEPHRINE DRIP IVPREMIX 50 MG/250 ML BAG IV SCH (01:00)
[2023-02-27] MEDS: Chlorhexidine MOUTHWASH 0.12% 15 ML UDC TOPICAL SCH ×6 (02:08→20:54)
[2023-02-27] MEDS ORDERED: Acetaminophen IV 1 GM/100ML 1,000 MG/100 ML BAG IV ONE (02:35)
[2023-02-27] MEDS ORDERED: fentaNYL 100 mcg/2 ml 50 MCG/ML VIAL IV SLOW PU ONE (02:36)
[2023-02-27] MEDS ORDERED: fentaNYL 100 mcg/2 ml 50 MCG/ML VIAL ONE ×2 (02:43→17:34)
[2023-02-27 04:56] LABS: PCO2 Arterial 29 mmHg (35-45); PO2 Arterial 205 mmHg (80-100)
[2023-02-27 04:56] LABS: Platelet Count 89 10^3/ul (150-450)
[2023-02-27 04:59] LABS: Hematocrit 39.9 % (38-53); Hemoglobin 13.9 g/dL (13.2-16.3); Mean Corpuscular Hemoglobin 28.1 pg (27-33); Mean Corpuscular Hgb Conc 34.7 g/dL (31-36); Mean Corpuscular Volume 80.7 fL (80-97); Mean Platelet Volume 8.5 fL (7.5-11.2); Platelet Count 89 10^3/uL (150-450); Red Blood Count 4.94 10^6/uL (4.06-5.63); Red Cell Distribution Width 13.3 % (12-17); White Blood Count 14.4 10^3/uL (3.6-10.2)
[2023-02-27 05:11] LABS: Albumin/Globulin Ratio 1.5 (1-3); Creatinine, Serum 1.39 mg/dL (0.67-1.17); Globulin 1.3 g/dL (2-4); Magnesium 1.5 mg/dL (1.9-2.7); Total Bilirubin 1.6 mg/dL (0.2-1.0); Total Protein 3.3 g/dL (6.4-8.9); eGFR CKD-EPI 69.9 (>60)
[2023-02-27 05:15] LABS: Activated Partial Thrombo Time 40.6 seconds (26.0-38.0); INR 3.26 (0.83-1.13)
[2023-02-27] MEDS ORDERED: LORazepam 2 mg VIAL 1 ml IV PUSH ONE (05:15)
[2023-02-27] MEDS ORDERED: Lorazepam PYXIS KEY PRN (05:15)
[2023-02-27] MEDS ORDERED: Lactated Ringers 1000 ml BAG 1,000 ML IV ONE (05:15)
[2023-02-27] MEDS ORDERED: LORazepam 2 mg VIAL 1 ml ONE (05:18)
[2023-02-27 05:21] LABS: ABS Basophils 0.1 10^3/uL (0.0-0.1); ABS Monocytes 0.4 10^3/uL (0.0-1.1); ABS Neutrophils 11.9 10^3/uL (1.5-7.6); ABS Nucleated RBC 0.15 10^3/ul; Eosinophil % 0.3 %; Lymphocyte % 13.8 %
[2023-02-27 05:22] LABS: Schistocytes ABSENT
[2023-02-27 05:23] LABS: Phosphorus 4.5 mg/dL (2.5-5.0); Potassium 4.8 mmol/L (3.5-5.0)
[2023-02-27 05:24] LABS: Calcium 5.5 mg/dL (8.6-10.3)
[2023-02-27 05:39] LABS: TSH Ultra Thyroid Stim Horm 0.31 mcIU/mL (0.34-5.60)
[2023-02-27 08:21] LABS: Free T4 1.17 ng/dL (0.61-1.12)
[2023-02-27] MEDS: VASOPRESSIN IVPREMIX BTL 40 UNIT/100 ML BTL IV SCH ×3 (08:39→23:41)
[2023-02-27] MEDS: Albumin Human 25% 25 GM/100 ML BTL IV PRN ×2 (09:03→16:19)
[2023-02-27 09:16] LABS: Venous Bicarbonate HCO3 19.1 mmol/L (24-28)
[2023-02-27] MEDS: Pantoprazole VIAL 40 MG VIAL IV SCH ×3 (09:45→20:54)
[2023-02-27] MEDS: Piperacillin/Tazobac 3.375 BAG 3.375 GM/100 ML BAG IV SCH ×2 (11:15→22:52)
[2023-02-27 11:42] LABS: CO2 Carbon Dioxide 21 mmol/L (22-32); Chloride 96 mmol/L (101-111); Creatinine, Serum 1.38 mg/dL (0.67-1.17); Glucose 117 mg/dL (70-100); Sodium 126 mmol/L (135-145); Uric Acid 4.1 mg/dL (4.4-7.6); eGFR CKD-EPI 70.5 (>60)
[2023-02-27 11:46] LABS: Anion Gap 9 mmol/L (2-16)
[2023-02-27 12:33] LABS: Potassium, Whole Blood 5.2 mmol/L (3.4-4.5)
[2023-02-27 13:05] LABS: High Sensitivity Troponin 1 Hr > 24000 pg/mL (<20)
[2023-02-27 15:05] LABS: Phosphorus 5.2 mg/dL (2.5-5.0)
[2023-02-27 15:08] LABS: Magnesium 1.6 mg/dL (1.9-2.7)
[2023-02-27 15:58] LABS: CO2 Carbon Dioxide 21 mmol/L (22-32); Chloride 100 mmol/L (101-111); Creatinine, Serum 1.22 mg/dL (0.67-1.17); Glucose 111 mg/dL (70-100); Sodium 129 mmol/L (135-145); eGFR CKD-EPI 81.8 (>60)
[2023-02-27 16:04] LABS: Calcium 5.7 mg/dL (8.6-10.3)
[2023-02-27 16:06] LABS: Potassium, Whole Blood 4.6 mmol/L (3.4-4.5)
[2023-02-27 16:07] LABS: Anion Gap 8 mmol/L (2-16)
[2023-02-27] MEDS ORDERED: Midazolam 2 mg/2 ml VIAL 1 mg/ml 2 ml VIAL (2 mg) IV SLOW PU ONE ×2 (16:14→17:29)
[2023-02-27 16:47] LABS: Hematocrit 33.3 % (38-53); Hemoglobin 11.6 g/dL (13.2-16.3); Mean Corpuscular Hemoglobin 28.5 pg (27-33); Mean Corpuscular Hgb Conc 34.9 g/dL (31-36); Mean Corpuscular Volume 81.6 fL (80-97); Mean Platelet Volume 8.5 fL (7.5-11.2); Platelet Count 54 10^3/uL (150-450); Red Blood Count 4.08 10^6/uL (4.06-5.63); Red Cell Distribution Width 13.7 % (12-17); White Blood Count 3.6 10^3/uL (3.6-10.2)
[2023-02-27 16:51] LABS: Blood Urea Nitrogen 12 mg/dL (6-24)
[2023-02-27] MEDS ORDERED: Digoxin IV 0.5 MG/2 ML AMP (0.25 MG/ML) IV SLOW PU ONE (17:13)
[2023-02-27] MEDS ORDERED: Digoxin IV 0.5 MG/2 ML AMP (0.25 MG/ML) ONE (17:14)
[2023-02-27] MEDS ORDERED: fentaNYL 100 mcg/2 ml 50 MCG/ML VIAL IV ONE (17:30)
[2023-02-27] MEDS ORDERED: Midazolam 5 mg/5 ml VIAL 1 mg/ml 5 ml VIAL (5 mg) ONE (17:34)
[2023-02-27] MEDS ORDERED: Etomidate 20 mg/10 ml 2 MG/ML 10 ml VIAL ONE (17:46)
[2023-02-27] MEDS ORDERED: Etomidate 20 mg/10 ml 2 MG/ML 10 ml VIAL IV ONE (17:46)
[2023-02-27 17:47] LABS: Venous Bicarbonate HCO3 18.1 mmol/L (24-28)
[2023-02-27 17:53] LABS: INR 2.53 (0.83-1.13)
[2023-02-27 18:16] LABS: Phosphorus 4.4 mg/dL (2.5-5.0)
[2023-02-27 18:19] LABS: Resp Rate 20
[2023-02-27 18:20] LABS: PCO2 Arterial 37 mmHg (35-45); PO2 Arterial 177 mmHg (80-100)
[2023-02-27 18:21] LABS: Potassium, Whole Blood 4.3 mmol/L (3.4-4.5)
[2023-02-27 18:36] LABS: Hematocrit 28.4 % (38-53); Hemoglobin 9.9 g/dL (13.2-16.3); Mean Corpuscular Hemoglobin 28.1 pg (27-33); Mean Corpuscular Hgb Conc 34.7 g/dL (31-36); Mean Corpuscular Volume 81.1 fL (80-97); Mean Platelet Volume 8.5 fL (7.5-11.2); Platelet Count 43 10^3/uL (150-450); Red Cell Distribution Width 13.5 % (12-17); White Blood Count 1.2 10^3/uL (3.6-10.2)
[2023-02-27] MEDS ORDERED: Magnesium Sulfate IV 2 GM in NS 0.9% 100 ml BAG 100 ML IVPB ONE (18:51)
[2023-02-27] MEDS: fentaNYL INFUSION 50 mcg/mL VL 2,500 MCG/50 ML VIAL IV SCH (18:54)
[2023-02-27 19:00] LABS: High Sens Troponin Baseline 23563 pg/mL (<20)
[2023-02-27 19:03] LABS: Blood Urea Nitrogen 13 mg/dL (6-24); Calcium 5.5 mg/dL (8.6-10.3)
[2023-02-27 19:11] LABS: High Sensitivity Troponin 3 Hr 18279 pg/mL (<20)
[2023-02-27] MEDS ORDERED: Magnesium Sulfate 2 GM IV (Premix) IVPB ONE (19:15)
[2023-02-27 20:09] LABS: RBC Morphology Normal (Normal)
[2023-02-27 20:10] LABS: ABS Lymphocytes 0.4 10^3/uL (1.0-4.8); ABS Neutrophils 0.8 10^3/uL (1.5-7.6); ABS Nucleated RBC 0.26 10^3/ul; Eosinophil % 0.1 %; Nucleated Red Blood Cells % 21.8 /100 WBC (0.0-0.4)
[2023-02-27 20:13] LABS: Creatine Kinase 195870 U/L (10-223)
[2023-02-27 20:15] LABS: Magnesium 1.5 mg/dL (1.9-2.7)
[2023-02-27 21:18] LABS: CO2 Carbon Dioxide 20 mmol/L (22-32); Chloride 101 mmol/L (101-111); Creatinine, Serum 1.08 mg/dL (0.67-1.17); Glucose 79 mg/dL (70-100); Sodium 131 mmol/L (135-145); eGFR CKD-EPI 94.7 (>60)
[2023-02-27 21:22] LABS: Calcium 6.1 mg/dL (8.6-10.3)
[2023-02-27 21:23] LABS: White Blood Count 1.4 10^3/uL (3.6-10.2)
[2023-02-27 21:24] LABS: ABS Lymphocytes 0.2 10^3/uL (1.0-4.8); ABS Neutrophils 1.1 10^3/uL (1.5-7.6); ABS Nucleated RBC 0.27 10^3/ul; Eosinophil % 0.2 %; Hematocrit 28.2 % (38-53); Hemoglobin 9.8 g/dL (13.2-16.3); Lymphocyte % 17.7 %; Mean Corpuscular Hemoglobin 28.7 pg (27-33); Mean Corpuscular Hgb Conc 34.8 g/dL (31-36); Mean Corpuscular Volume 82.5 fL (80-97); Mean Platelet Volume 8.6 fL (7.5-11.2); Nucleated Red Blood Cells % 19.8 /100 WBC (0.0-0.4); Platelet Count 30 10^3/uL (150-450); Red Blood Count 3.42 10^6/uL (4.06-5.63); Red Cell Distribution Width 13.3 % (12-17)
[2023-02-27 21:26] LABS: Phosphorus 4.5 mg/dL (2.5-5.0)
[2023-02-27 21:28] LABS: Anion Gap 10 mmol/L (2-16); Potassium, Whole Blood 4.3 mmol/L (3.4-4.5)
[2023-02-27 21:31] LABS: Magnesium 2.4 mg/dL (1.9-2.7)
[2023-02-27 21:55] LABS: Blood Urea Nitrogen 10 mg/dL (6-24)
[2023-02-27 23:00] LABS: Platelet Count 30 10^3/ul (150-450)
[2023-02-27 23:17] LABS: Activated Partial Thrombo Time 42.4 seconds (26.0-38.0); INR 2.27 (0.83-1.13)
[2023-02-27 23:27] LABS: Schistocytes ABSENT
[2023-02-28] MEDS: Heparin 1,000 UNIT/ML 10 ml (10,000 UNITS) CATHLAB/DIALYSIS DIALYSIS PRN ×20 (00:45→23:00)
[2023-02-28] MEDS ORDERED: Lactated Ringers 1000 ml BAG 1,000 ML IV ONE ×2 (01:16→05:42)
[2023-02-28 01:23] LABS: Creatinine, Serum 0.96 mg/dL (0.67-1.17)
[2023-02-28 01:25] LABS: Potassium 4.1 mmol/L (3.5-5.0)
[2023-02-28 01:26] LABS: Calcium 6.1 mg/dL (8.6-10.3)
[2023-02-28] MEDS: Chlorhexidine MOUTHWASH 0.12% 15 ML UDC TOPICAL SCH ×6 (01:28→21:04)
[2023-02-28] MEDS: Norepinephrine 16MCG/ML BAGD5W 4,000 MCG/250 ML BAG IV SCH ×14 (01:29→23:00)
[2023-02-28] MEDS: fentaNYL INFUSION 50 mcg/mL VL 2,500 MCG/50 ML VIAL IV SCH (02:22)
[2023-02-28] MEDS ORDERED: Dextrose 50% Syringe 50 ml 25 GM/50 ML SYRINGE IV PUSH ONE ×2 (02:35→18:12)
[2023-02-28] MEDS ORDERED: Dextrose 50% Syringe 50 ml 25 GM/50 ML SYRINGE ONE ×2 (02:35→18:33)
[2023-02-28] MEDS: Phenylephrine DRIP 0.2 MG/ML in NS 0.9% 250 ML (PHA mix) IV SCH ×5 (04:08→20:39)
[2023-02-28 05:21] LABS: Venous Bicarbonate HCO3 17.7 mmol/L (24-28)
[2023-02-28 05:39] LABS: Creatinine, Serum 0.83 mg/dL (0.67-1.17); eGFR CKD-EPI 120.7 (>60)
[2023-02-28 05:39] LABS: Magnesium 1.5 mg/dL (1.9-2.7)
[2023-02-28 05:42] LABS: Hemoglobin 9.7 g/dL (13.2-16.3); Mean Corpuscular Hemoglobin 28.4 pg (27-33); Mean Corpuscular Hgb Conc 34.7 g/dL (31-36); Red Blood Count 3.41 10^6/uL (4.06-5.63); Red Cell Distribution Width 13.6 % (12-17); White Blood Count 2.8 10^3/uL (3.6-10.2)
[2023-02-28 05:47] LABS: Calcium 5.9 mg/dL (8.6-10.3)
[2023-02-28 05:48] LABS: Phosphorus 3.5 mg/dL (2.5-5.0)
[2023-02-28 05:49] LABS: Potassium 4.1 mmol/L (3.5-5.0)
[2023-02-28 06:20] LABS: Mean Platelet Volume 8.1 fL (7.5-11.2); Platelet Count 13 10^3/uL (150-450)
[2023-02-28 06:23] LABS: RBC Morphology Normal (Normal)
[2023-02-28 06:24] LABS: ABS Eosinophils 0.1 10^3/uL (0.0-0.5); ABS Lymphocytes 0.3 10^3/uL (1.0-4.8); ABS Monocytes 0.1 10^3/uL (0.0-1.1); ABS Neutrophils 2.3 10^3/uL (1.5-7.6); ABS Nucleated RBC 0.37 10^3/ul; Eosinophil % 4.2 %; Nucleated Red Blood Cells % 12.9 /100 WBC (0.0-0.4)
[2023-02-28] MEDS: DOBUTamine 2000 MCG/ML IVPREMX 500 MG/250 ML BAG IV SCH ×2 (06:31→23:17)
[2023-02-28] MEDS ORDERED: Magnesium Sulfate 2 gm BAG 2 GM/50 ML BAG IVPB ONE (07:24)
[2023-02-28] MEDS: Pantoprazole VIAL 40 MG VIAL IV SCH ×2 (08:36→21:04)
[2023-02-28 09:40] LABS: Blood Urea Nitrogen 13 mg/dL (6-24); CO2 Carbon Dioxide 19 mmol/L (22-32); Chloride 102 mmol/L (101-111); Creatinine, Serum 0.95 mg/dL (0.67-1.17); Glucose 72 mg/dL (70-100); Sodium 134 mmol/L (135-145); eGFR CKD-EPI 110.4 (>60)
[2023-02-28 10:00] LABS: Anion Gap 13 mmol/L (2-16)
[2023-02-28 10:01] LABS: Calcium 5.6 mg/dL (8.6-10.3)
[2023-02-28 10:15] LABS: Albumin 1.7 g/dL (3.2-5.2); Alkaline Phosphatase 122 U/L (35-149)
[2023-02-28] MEDS ORDERED: Midazolam 2 mg/2 ml VIAL 1 mg/ml 2 ml VIAL (2 mg) IV SLOW PU ONE ×3 (10:16→11:29)
[2023-02-28] MEDS ORDERED: Rocuronium 50 mg VIAL 10 mg/ml 5 ml VIAL (50 mg) IV ONE ×2 (10:16)
[2023-02-28] MEDS ORDERED: Midazolam 5 mg/5 ml VIAL 1 mg/ml 5 ml VIAL (5 mg) ONE (10:16)
[2023-02-28 10:18] LABS: Albumin/Globulin Ratio 1.3 (1-3); Globulin 1.3 g/dL (2-4); Total Protein < 3.0 g/dL (6.4-8.9)
[2023-02-28 10:19] LABS: Indirect Bilirubin 1.4 mg/dL (0.3-1.0)
[2023-02-28] MEDS ORDERED: Rocuronium 50 mg VIAL 10 mg/ml 5 ml VIAL (50 mg) ONE (10:20)
[2023-02-28] MEDS ORDERED: CALCIUM GLUCONATE IVPB ONE (10:30)
[2023-02-28] MEDS ORDERED: NS 0.9% IVPB ONE (10:30)
[2023-02-28] MEDS ORDERED: fentaNYL 100 mcg/2 ml 50 MCG/ML VIAL ONE (10:42)
[2023-02-28 10:48] LABS: ALT 2124 U/L (7-52)
[2023-02-28] MEDS: Piperacillin/Tazobac 3.375 BAG 3.375 GM/100 ML BAG IV SCH ×2 (11:25→22:28)
[2023-02-28] MEDS ORDERED: fentaNYL 100 mcg/2 ml 50 MCG/ML VIAL IV SLOW PU ONE (11:30)
[2023-02-28] MEDS: Dexmedetomidine 1,000 MCG in NS 0.9% 250 ml 240 ML IV SCH ×2 (12:00→19:41)
[2023-02-28] MEDS: VASOPRESSIN IVPREMIX BTL 40 UNIT/100 ML BTL IV SCH ×2 (12:14→18:22)
[2023-02-28 12:39] LABS: PCO2 Arterial 37 mmHg (35-45); PO2 Arterial 79 mmHg (80-100)
[2023-02-28 12:42] LABS: Blood Urea Nitrogen 11 mg/dL (6-24); CO2 Carbon Dioxide 21 mmol/L (22-32); Chloride 103 mmol/L (101-111); Creatinine, Serum 0.87 mg/dL (0.67-1.17); Glucose 75 mg/dL (70-100); Sodium 133 mmol/L (135-145)
[2023-02-28 12:45] LABS: Anion Gap 9 mmol/L (2-16)
[2023-02-28 12:47] LABS: Calcium 6.4 mg/dL (8.6-10.3)
[2023-02-28 13:12] LABS: Potassium, Whole Blood 3.9 mmol/L (3.4-4.5)
[2023-02-28 13:28] LABS: Hemoglobin 7.7 g/dL (13.2-16.3); Mean Corpuscular Hgb Conc 34.9 g/dL (31-36); Mean Platelet Volume 7.1 fL (7.5-11.2); Platelet Count 16 10^3/uL (150-450); Red Blood Count 2.65 10^6/uL (4.06-5.63)
[2023-02-28] MEDS: Albumin Human 25% 25 GM/100 ML BTL IV PRN (13:36)
[2023-02-28 14:06] LABS: RBC Morphology Normal (Normal)
[2023-02-28 14:07] LABS: ABS Lymphocytes 0.4 10^3/uL (1.0-4.8); ABS Monocytes 0.1 10^3/uL (0.0-1.1); ABS Neutrophils 2.8 10^3/uL (1.5-7.6); ABS Nucleated RBC 0.52 10^3/ul; Eosinophil % 1.1 %; Lymphocyte % 13.4 %; Nucleated Red Blood Cells % 15.8 /100 WBC (0.0-0.4)
[2023-02-28 14:14] LABS: White Blood Count 3.3 10^3/uL (3.6-10.2)
[2023-02-28] MEDS ORDERED: TETRAHYDROZOLINE 0.05% EYE DROPS 15 ML BTL (NF) BOTH EYES PRN (14:15)
[2023-02-28] MEDS ORDERED: CMCS: Olopatadine 0.1% OPHTH (NF) 1 DROP BTL BOTH EYES PRN (14:25)
[2023-02-28 17:38] LABS: Resp Rate 22
[2023-02-28 17:41] LABS: PCO2 Arterial 40 mmHg (35-45); PO2 Arterial 60 mmHg (80-100)
[2023-02-28 17:48] LABS: INR 1.61 (0.83-1.13)
[2023-02-28 17:56] LABS: Calcium 6.6 mg/dL (8.6-10.3); Creatinine, Serum 0.72 mg/dL (0.67-1.17)
[2023-02-28 17:58] LABS: Potassium 4.2 mmol/L (3.5-5.0)
[2023-02-28] MEDS ORDERED: D10W 1000 ml BAG 1,000 ML IV SCH (19:00)
[2023-02-28 20:32] LABS: Hematocrit 18.6 % (38-53); Hemoglobin 6.5 g/dL (13.2-16.3); Mean Corpuscular Hemoglobin 29.1 pg (27-33); Mean Corpuscular Hgb Conc 34.8 g/dL (31-36); Mean Corpuscular Volume 83.6 fL (80-97); Platelet Count 23 10^3/uL (150-450); Red Blood Count 2.23 10^6/uL (4.06-5.63); Red Cell Distribution Width 13.8 % (12-17); White Blood Count 4.5 10^3/uL (3.6-10.2)
[2023-02-28 20:40] LABS: Creatinine, Serum 0.71 mg/dL (0.67-1.17); eGFR CKD-EPI 126.6 (>60)
[2023-02-28 20:41] LABS: Potassium 4.2 mmol/L (3.5-5.0)
[2023-02-28 20:42] LABS: Calcium 6.2 mg/dL (8.6-10.3)
[2023-02-28 20:58] LABS: ABS Eosinophils 0.1 10^3/uL (0.0-0.5); ABS Lymphocytes 0.6 10^3/uL (1.0-4.8); ABS Neutrophils 3.9 10^3/uL (1.5-7.6); ABS Nucleated RBC 0.48 10^3/ul; Eosinophil % 1.7 %; Lymphocyte % 12.3 %; Nucleated Red Blood Cells % 10.6 /100 WBC (0.0-0.4)
[2023-02-28 21:52] LABS: Mean Platelet Volume 7.7 fL (7.5-11.2); Platelet Count 16 10^3/uL (150-450)
[2023-02-28 23:29] LABS: Creatinine, Serum 0.68 mg/dL (0.67-1.17); eGFR CKD-EPI 128.2 (>60)
[2023-02-28] MEDS: Norepinephrine *QUAD STRENGTH* 16 mg/250 mL NS (ICU ONLY) IV SCH (23:33)
[2023-02-28 23:34] LABS: Potassium 4.3 mmol/L (3.5-5.0)
[2023-02-28 23:47] LABS: Calcium 6.2 mg/dL (8.6-10.3)
[2023-03-01 00:09] LABS: PCO2 Arterial 44 mmHg (35-45); PO2 Arterial 80 mmHg (80-100)
[2023-03-01] MEDS: Heparin 1,000 UNIT/ML 10 ml (10,000 UNITS) CATHLAB/DIALYSIS DIALYSIS PRN ×22 (01:00→22:57)
[2023-03-01] MEDS: VASOPRESSIN IVPREMIX BTL 40 UNIT/100 ML BTL IV SCH ×4 (01:03→20:52)
[2023-03-01] MEDS: Phenylephrine DRIP 0.2 MG/ML in NS 0.9% 250 ML (PHA mix) IV SCH ×6 (01:04→21:57)
[2023-03-01] MEDS: Chlorhexidine MOUTHWASH 0.12% 15 ML UDC TOPICAL SCH ×6 (02:00→20:41)
[2023-03-01] MEDS: fentaNYL INFUSION 50 mcg/mL VL 2,500 MCG/50 ML VIAL IV SCH (03:59)
[2023-03-01 04:12] LABS: Blood Urea Nitrogen 9 mg/dL (6-24); CO2 Carbon Dioxide 21 mmol/L (22-32); Chloride 104 mmol/L (101-111); Creatinine, Serum 0.62 mg/dL (0.67-1.17); Sodium 135 mmol/L (135-145); eGFR CKD-EPI 131.9 (>60)
[2023-03-01 04:14] LABS: Anion Gap 10 mmol/L (2-16); Potassium 4.2 mmol/L (3.5-5.0)
[2023-03-01 04:31] LABS: Glucose 38 mg/dL (70-100)
[2023-03-01] MEDS ORDERED: Dextrose 50% Syringe 50 ml 25 GM/50 ML SYRINGE ONE (04:31)
[2023-03-01] MEDS: Dextrose 50% Syringe 50 ml 25 GM/50 ML SYRINGE IV PUSH PRN ×5 (04:47→23:30)
[2023-03-01 05:14] LABS: Hemoglobin 8.6 g/dL (13.2-16.3); Mean Corpuscular Hemoglobin 28.9 pg (27-33); Mean Corpuscular Hgb Conc 34.5 g/dL (31-36); Mean Corpuscular Volume 83.6 fL (80-97); Red Blood Count 2.99 10^6/uL (4.06-5.63); Red Cell Distribution Width 14.2 % (12-17); White Blood Count 6.2 10^3/uL (3.6-10.2)
[2023-03-01 05:27] LABS: Magnesium 1.5 mg/dL (1.9-2.7)
[2023-03-01 05:31] LABS: Phosphorus 3.7 mg/dL (2.5-5.0)
[2023-03-01 05:50] LABS: Platelet Count < 3 10^3/uL (150-450)
[2023-03-01 06:00] LABS: ABS Eosinophils 0.2 10^3/uL (0.0-0.5); ABS Lymphocytes 0.6 10^3/uL (1.0-4.8); ABS Neutrophils 5.5 10^3/uL (1.5-7.6); ABS Nucleated RBC 1.06 10^3/ul; Eosinophil % 2.7 %; RBC Morphology Normal (Normal)
[2023-03-01] MEDS: Norepinephrine *QUAD STRENGTH* 16 mg/250 mL NS (ICU ONLY) IV SCH (06:09)
[2023-03-01] MEDS: Dexmedetomidine 1,000 MCG in NS 0.9% 250 ml 240 ML IV SCH ×2 (06:10→16:16)
[2023-03-01 06:53] LABS: Creatinine, Serum 0.65 mg/dL (0.67-1.17)
[2023-03-01 06:54] LABS: Potassium 4.1 mmol/L (3.5-5.0)
[2023-03-01 06:55] LABS: Calcium 6.2 mg/dL (8.6-10.3)
[2023-03-01] MEDS: Pantoprazole VIAL 40 MG VIAL IV SCH ×2 (07:04→20:41)
[2023-03-01] MEDS ORDERED: Magnesium Sulfate 2 gm BAG 2 GM/50 ML BAG IVPB ONE (07:09)
[2023-03-01] MEDS: Albumin Human 25% 25 GM/100 ML BTL IV PRN (07:51)
[2023-03-01 08:16] LABS: Albumin 1.9 g/dL (3.2-5.2)
[2023-03-01 08:21] LABS: INR 1.39 (0.83-1.13)
[2023-03-01 08:21] LABS: Alkaline Phosphatase 187 U/L (35-149)
[2023-03-01 08:25] LABS: Mean Platelet Volume 7.4 fL (7.5-11.2); Platelet Count 6 10^3/uL (150-450)
[2023-03-01 08:30] LABS: Albumin/Globulin Ratio 1.7 (1-3); Globulin 1.1 g/dL (2-4); Total Protein < 3.0 g/dL (6.4-8.9)
[2023-03-01 08:36] LABS: Blood Urea Nitrogen 10 mg/dL (6-24); CO2 Carbon Dioxide 19 mmol/L (22-32); Chloride 103 mmol/L (101-111); Creatinine, Serum 0.68 mg/dL (0.67-1.17); Glucose 65 mg/dL (70-100); Sodium 138 mmol/L (135-145); eGFR CKD-EPI 128.2 (>60)
[2023-03-01 08:37] LABS: Anion Gap 16 mmol/L (2-16)
[2023-03-01 08:38] LABS: Calcium 5.9 mg/dL (8.6-10.3)
[2023-03-01] MEDS ORDERED: Calcium Gluconate 1 GM/10 ML VIAL (in Pyxis) IV PUSH ONE (08:41)
[2023-03-01 08:43] LABS: ALT 1465 U/L (7-52)
[2023-03-01] MEDS: D10W 1000 ml BAG 1,000 ML IV SCH ×3 (08:58→23:31)
[2023-03-01] MEDS ORDERED: D10W 1000 ml BAG 1,000 ML IV SCH ×3 (09:00→21:00)
[2023-03-01] MEDS: Norepinephrine IV 16 MG in NS 0.9% 250 ml 234 ML IV SCH ×4 (09:07→22:24)
[2023-03-01] MEDS: Hydrocortisone INJ 100 MG/2ML 2 ML VIAL IV SCH ×2 (09:08→17:15)
[2023-03-01] MEDS ORDERED: CALCIUM GLUCONATE IV ONE (09:30)
[2023-03-01] MEDS ORDERED: NS 0.9% IV ONE (09:30)
[2023-03-01] MEDS ORDERED: fentaNYL 100 mcg/2 ml 50 MCG/ML VIAL ONE (09:56)
[2023-03-01] MEDS ORDERED: fentaNYL 100 mcg/2 ml 50 MCG/ML VIAL IV SLOW PU ONE (10:14)
[2023-03-01] MEDS: Piperacillin/Tazobac 3.375 BAG 3.375 GM/100 ML BAG IV SCH ×2 (11:20→23:14)
[2023-03-01 14:24] LABS: Hematocrit 23.1 % (38-53); Hemoglobin 8.1 g/dL (13.2-16.3); Mean Corpuscular Volume 82.9 fL (80-97); Mean Platelet Volume 8.4 fL (7.5-11.2); Platelet Count 5 10^3/uL (150-450); Red Blood Count 2.78 10^6/uL (4.06-5.63); Red Cell Distribution Width 14.4 % (12-17); White Blood Count 11.8 10^3/uL (3.6-10.2)
[2023-03-01 14:46] LABS: Basophilic Stippling 1+; Burr Cells 1+; Polychromasia 1+
[2023-03-01 14:47] LABS: ABS Eosinophils 0.3 10^3/uL (0.0-0.5); ABS Lymphocytes 0.8 10^3/uL (1.0-4.8); ABS Neutrophils 10.6 10^3/uL (1.5-7.6); ABS Nucleated RBC 0.44 10^3/ul; Eosinophil % 2.6 %; Lymphocyte % 6.6 %; Nucleated Red Blood Cells % 3.7 /100 WBC (0.0-0.4)
[2023-03-01 15:56] LABS: CO2 Carbon Dioxide 31 mmol/L (22-32); Calcium 6.6 mg/dL (8.6-10.3); Chloride 109 mmol/L (101-111); Glucose 97 mg/dL (70-100); Sodium 139 mmol/L (135-145)
[2023-03-01 16:30] LABS: Blood Urea Nitrogen < 2 mg/dL (6-24); Creatinine, Serum < 0.30 mg/dL (0.67-1.17); eGFR CKD-EPI 164.2 (>60)
[2023-03-01 16:31] LABS: Potassium 2.3 mmol/L (3.5-5.0)
[2023-03-01 17:03] LABS: Creatinine, Serum 0.61 mg/dL (0.67-1.17); eGFR CKD-EPI 132.5 (>60)
[2023-03-01 17:07] LABS: Potassium 4.1 mmol/L (3.5-5.0)
[2023-03-01 17:09] LABS: Calcium 6.2 mg/dL (8.6-10.3)
[2023-03-01 17:28] LABS: Magnesium 1.6 mg/dL (1.9-2.7)
[2023-03-01 17:36] LABS: Resp Rate 21
[2023-03-01 17:39] LABS: PCO2 Arterial 30 mmHg (35-45); PO2 Arterial 96 mmHg (80-100)
[2023-03-01 17:45] LABS: INR 1.36 (0.83-1.13)
[2023-03-01 20:06] LABS: Hematocrit 21.2 % (38-53); Hemoglobin 7.3 g/dL (13.2-16.3); Mean Corpuscular Hemoglobin 28.4 pg (27-33); Mean Corpuscular Hgb Conc 34.2 g/dL (31-36); Mean Platelet Volume 8.2 fL (7.5-11.2); Platelet Count 6 10^3/uL (150-450); Red Blood Count 2.56 10^6/uL (4.06-5.63); White Blood Count 16.3 10^3/uL (3.6-10.2)
[2023-03-01 20:20] LABS: Creatinine, Serum 0.59 mg/dL (0.67-1.17); eGFR CKD-EPI 133.9 (>60)
[2023-03-01 20:23] LABS: Potassium 4.1 mmol/L (3.5-5.0)
[2023-03-01 20:25] LABS: Calcium 6.2 mg/dL (8.6-10.3)
[2023-03-01] MEDS: DOBUTamine 2000 MCG/ML IVPREMX 500 MG/250 ML BAG IV SCH (20:39)
[2023-03-01 23:14] LABS: Creatinine, Serum 0.5 mg/dL (0.67-1.17); eGFR CKD-EPI 140.7 (>60)
[2023-03-01 23:20] LABS: Potassium 4.1 mmol/L (3.5-5.0)
[2023-03-01 23:46] LABS: PCO2 Arterial 38 mmHg (35-45); PO2 Arterial 76 mmHg (80-100)
[2023-03-02] MEDS: Hydrocortisone INJ 100 MG/2ML 2 ML VIAL IV SCH (00:24)
[2023-03-02] MEDS: Heparin 1,000 UNIT/ML 10 ml (10,000 UNITS) CATHLAB/DIALYSIS DIALYSIS PRN ×6 (01:00→06:02)
[2023-03-02] MEDS: Chlorhexidine MOUTHWASH 0.12% 15 ML UDC TOPICAL SCH ×2 (01:05→05:39)
[2023-03-02] MEDS: Phenylephrine DRIP 0.2 MG/ML in NS 0.9% 250 ML (PHA mix) IV SCH ×2 (02:13→06:41)
[2023-03-02 02:26] LABS: Mean Platelet Volume 7.5 fL (7.5-11.2); Platelet Count 10 10^3/uL (150-450)
[2023-03-02] MEDS: Dexmedetomidine 1,000 MCG in NS 0.9% 250 ml 240 ML IV SCH (02:43)
[2023-03-02] MEDS: fentaNYL INFUSION 50 mcg/mL VL 2,500 MCG/50 ML VIAL IV SCH (03:10)
[2023-03-02] MEDS: VASOPRESSIN IVPREMIX BTL 40 UNIT/100 ML BTL IV SCH (03:16)
[2023-03-02] MEDS: Norepinephrine IV 16 MG in NS 0.9% 250 ml 234 ML IV SCH (03:45)
[2023-03-02 05:04] LABS: INR 1.52 (0.83-1.13)
[2023-03-02 05:15] LABS: Creatinine, Serum 0.4 mg/dL (0.67-1.17); Magnesium 1.6 mg/dL (1.9-2.7); eGFR CKD-EPI 150.5 (>60)
[2023-03-02 05:17] LABS: Potassium 4.3 mmol/L (3.5-5.0)
[2023-03-02 05:18] LABS: Phosphorus 4.8 mg/dL (2.5-5.0)
[2023-03-02 05:21] LABS: Hematocrit 16.2 % (38-53); Hemoglobin 5.4 g/dL (13.2-16.3); Mean Corpuscular Hemoglobin 28.4 pg (27-33); Mean Corpuscular Hgb Conc 33.4 g/dL (31-36); Mean Corpuscular Volume 85.1 fL (80-97); Mean Platelet Volume 10.9 fL (7.5-11.2); Platelet Count 3 10^3/uL (150-450); Red Cell Distribution Width 15.6 % (12-17)
[2023-03-02 05:35] LABS: Burr Cells 2+; Toxic Granulation 1+
[2023-03-02 05:36] LABS: ABS Eosinophils 0.4 10^3/uL (0.0-0.5); ABS Lymphocytes 2.2 10^3/uL (1.0-4.8); ABS Monocytes 0.1 10^3/uL (0.0-1.1); ABS Neutrophils 23.7 10^3/uL (1.5-7.6); ABS Nucleated RBC 0.95 10^3/ul; Eosinophil % 1.6 %; Lymphocyte % 8.5 %; Nucleated Red Blood Cells % 3.6 /100 WBC (0.0-0.4)
[2023-03-02 05:37] LABS: White Blood Count 18.3 10^3/uL (3.6-10.2)
[2023-03-02 06:04] VITALS: BP 87/54
[2023-03-02] MEDS: D10W 1000 ml BAG 1,000 ML IV SCH (06:41)
[2023-03-02] MEDS ORDERED: fentaNYL 100 mcg/2 ml 50 MCG/ML VIAL IV SLOW PU PRN (06:46)
== END 2023-03-02 08:30 | disposition expired | DRG 951 ==
LOC: ED 19:12 → EDHOLD 23:07 → SUATTDRO 23:07 → ICU 23:45
PROVIDERS: ADMIT Student in an Organized Health Care Education/Training Program; ATTEND Internal Medicine Critical Care Medicine